=== PATIENT | male | born 1990 | race African-American/Black ===

== ENCOUNTER 2020-06-29 02:28 | Emergency (ER) | payer OTHER ==
[~2020-06-29] VITALS: Ht 193 cm; Wt 77.7 kg
[2020-06-29 02:52] VITALS: BP 114/69; Ht 193 cm; Wt 77.7 kg
== END 2020-06-29 03:48 | disposition home or self-care (01) ==
LOC: ED 02:28
DX: G56.01 Carpal tunnel syndrome, right upper limb (principal)